=== PATIENT | female | born 1975 | race Hispanic/Latino ===

== ENCOUNTER 2019-01-27 02:34 | Inpatient (IN) | payer SELFPAY ==
[2019-01-27] MEDS ORDERED: Fentanyl 100 MCG/2 ML VIAL ONE ×4 (02:38→09:17)
[2019-01-27 02:46] LABS: Hemoglobin 13.8 g/dL (12.0-16.0); Mean Corpuscular HGB CONC 33.2 g/dL (32.0-36.0); Mean Corpuscular Hemoglobin 29.9 pg (27.0-31.0); Mean Platelet Volume 6.5 fL (7.4-10.4); Platelet Count 384 thou/uL (130-400); RBC Distribution Width 13.1 % (11.5-14.5); Red Blood Cell (RBC) Count 4.63 mill/uL (4.20-5.40); White Blood Cell (WBC) Count 10.5 thou/uL (4.8-10.8)
[2019-01-27 02:54] LABS: BHCG - Serum Negative (NEGATIVE); Pregs Control Background? CLEAR/WHITE (CLR/WHITE); Pregs Control Bar Appear? YES (CONTROL BAR)
[2019-01-27 03:02] LABS: ALT (SGPT) 55 U/L (8-55); AST (SGOT) 41 U/L (5-34); Albumin 4.7 g/dL (3.5-5.0); Alkaline Phosphatase 118 U/L (40-150); Anion Gap 19 mmol/L (10-20); BUN (Urea Nitrogen) 11 mg/dL (7.0-18.7); Bilirubin, Total 0.3 mg/dL (0.2-1.2); Calc. Creatinine Clearance 0 mL/min (70-130); Calcium 9.8 mg/dL (7.8-10.44); Carbon Dioxide 18 mmol/L (22-29); Chloride 109 mmol/L (98-107); Estimated GFR-MDRD 59; Globulin 3.5 g/dL (2.4-3.5); Glucose 133 mg/dL (70-105); Potassium 3.7 mmol/L (3.5-5.1); Protein, Total 8.2 g/dL (6.0-8.3); Sodium 142 mmol/L (136-145)
[2019-01-27 03:06] LABS: Lymphocytes 54 % (21-51); MDiff Complete? YES; Monocytes 10 % (0-10); Neutrophil 36 % (42-75); Platelet Morphology Comment Appears Adequate; RBC Morphology Normal
[2019-01-27] MEDS ORDERED: Ketorolac Tromethamine 30 MG/ML VIAL ONE ×2 (03:32→10:16)
[2019-01-27] MEDS ORDERED: Acetaminophen 1,000 MG in Premix Bag 1 BAG IVPB SCH ×3 (03:45→14:00)
[2019-01-27] MEDS ORDERED: traMADol HCl 50 MG TAB PO PRN ×2 (03:48)
[2019-01-27] MEDS ORDERED: Sodium Chloride 0.9% 1,000 ML IV SCH (04:00)
[2019-01-27] MEDS ORDERED: Pantoprazole 40 MG VIAL IVP SCH (04:00)
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
[2019-01-27] MEDS: Ketorolac Tromethamine 30 MG/ML VIAL IVP SCH ×2 (05:23→14:07)
[2019-01-27 05:51] VITALS: BMI 21.9
[2019-01-27] MEDS ORDERED: Morphine 4 MG/ML VIAL SLOW IVP SCH (06:00)
[2019-01-27] MEDS ORDERED: Morphine 4 MG/ML VIAL IV SCH (06:00)
[2019-01-27] MEDS ORDERED: Dextrose 5% in Water 1,000 ML IV PRN (06:44)
[2019-01-27] MEDS ORDERED: Dextrose 50% Abboject 50 ML SYRINGE SLOW IVP PRN (06:44)
[2019-01-27] MEDS ORDERED: Ondansetron PF 4 MG/2 ML Vial IVP PRN (06:44)
[2019-01-27] MEDS ORDERED: hydrALAZINE 20 MG/ML VIAL SLOW IVP PRN (06:44)
[2019-01-27] MEDS ORDERED: HumaLOG 300 UNITS/3 ML VIAL SC PRN (06:44)
[2019-01-27] MEDS ORDERED: Morphine 4 MG/ML VIAL SLOW IVP PRN (07:53)
[2019-01-27] MEDS ORDERED: Morphine 4 MG/ML VIAL ONE (07:56)
[2019-01-27] MEDS ORDERED: CEFAZOLIN 2 GM in Premix Bag 1 BAG IVPB SCH (08:00)
[2019-01-27] MEDS ORDERED: Midazolam HCl 2 mg/2 ml Vial ONE ×2 (08:16→09:17)
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
[2019-01-27] MEDS ORDERED: Famotidine/PF 20 mg/2ml Vial ONE (08:32)
[2019-01-27] MEDS ORDERED: Ondansetron PF 4 MG/2 ML Vial ONE ×2 (08:33→10:16)
[2019-01-27] MEDS ORDERED: Scopolamine 1.5 mg/72 hour Patch ONE (08:33)
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
[2019-01-27] MEDS: Polyethylene Glycol 3350 17 GM Packet PO SCH (08:59)
[2019-01-27] MEDS: Senokot S 8.6-50 MG TAB PO SCH ×2 (09:00→20:13)
[2019-01-27] MEDS ORDERED: Ondansetron HCl/PF 4 MG/2 ML Vial IVP PRN (09:03)
[2019-01-27] MEDS ORDERED: Promethazine HCl 25 MG/ML VIAL SLOW IVP PRN (09:03)
[2019-01-27] MEDS ORDERED: HYDROmorphone 2 MG/ML VIAL SLOW IVP PRN (09:03)
[2019-01-27] MEDS ORDERED: Meperidine HCl/PF 25 MG/ML VIAL SLOW IVP PRN (09:03)
[2019-01-27] MEDS ORDERED: Promethazine HCl 25 MG/ML VIAL IM PRN (09:03)
[2019-01-27] MEDS ORDERED: HYDROmorphone 2 MG/ML VIAL ONE ×2 (09:51→12:12)
[2019-01-27] MEDS ORDERED: PHENYLEPHRINE-NS 100 MCG/ML 10 ML SYRINGE ONE (10:16)
[2019-01-27] MEDS ORDERED: Glycopyrrolate 0.2 MG/ML 5 ML SYRINGE ONE (10:16)
[2019-01-27] MEDS ORDERED: Dexamethasone 20 MG/5 ML VIAL ONE (10:16)
[2019-01-27] MEDS ORDERED: PROPOFOL 200 MG/20 ML VIAL ONE (10:16)
[2019-01-27] MEDS ORDERED: Rocuronium Bromide 10 MG/ML (10ML VIAL) ONE (10:16)
[2019-01-27] MEDS ORDERED: ePHEDrine 50 MG/ML VIAL ONE (10:16)
[2019-01-27] MEDS ORDERED: Lidocaine 1% PF 5 ML VIAL ONE (10:16)
[2019-01-27] MEDS ORDERED: Iopamidol 370 76% 100 ML VIAL ONE (10:41)
--- NOTE | 2019-01-27 11:20 | RAD ---
EXAM: XR Tib Fib Lt Leg 2 View PROVIDED CLINICAL HISTORY: ORIF COMPARISON: 01/27/2019 FINDINGS: Spot fluoroscopic frontal and lateral views of the distal foreleg demonstrate partially visualized ch anges of antegrade intramedullary tibial nail placement with interlocking screws. Previously seen medial malleolar screws are no longer evident. Prior fibular postsurgical changes are partially visua lized. IMPRESSION: As above.
[2019-01-27] MEDS ORDERED: SUGAMMADEX SODIUM 500 MG/5 ML VIAL ONE (11:25)
[2019-01-27] MEDS: ALPRAZolam 1 MG TAB PO PRN ×2 (13:13→20:13)
[2019-01-27] MEDS ORDERED: Ketorolac Tromethamine 30 MG/ML VIAL IVP SCH ×2 (14:00→15:45)
[2019-01-27] MEDS: traMADol HCl 50 MG TAB PO SCH ×2 (14:10→20:13)
[2019-01-27] MEDS: traMADol HCl 50 MG TAB PO PRN (15:15)
[2019-01-27] MEDS ORDERED: HYDROcodone/Acetaminophen 7.5/325 mg Tablet PO PRN (15:36)
[2019-01-27] MEDS ORDERED: Ketorolac Tromethamine 30 MG/ML VIAL IVP PRN (15:36)
[2019-01-27] MEDS: HYDROcodone/Acetaminophen 7.5/325 mg Tablet PO PRN ×2 (16:33→22:49)
[2019-01-27] MEDS: Cyclobenzaprine 10 MG TAB PO PRN (16:33)
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
[2019-01-27] MEDS: CEFAZOLIN 2 GM in Premix Bag 1 BAG IVPB SCH (17:39)
[2019-01-27] MEDS ORDERED: Ibuprofen 600 MG TAB PO PRN (20:00)
[2019-01-28] MEDS: Ibuprofen 600 MG TAB PO SCH ×4 (00:15→18:28)
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
[2019-01-28] MEDS: traMADol HCl 50 MG TAB PO SCH ×4 (02:42→21:38)
[2019-01-28] MEDS: CEFAZOLIN 2 GM in Premix Bag 1 BAG IVPB SCH (02:43)
[2019-01-28] MEDS: Cyclobenzaprine 10 MG TAB PO PRN (02:43)
[2019-01-28] MEDS: Levothyroxine Sodium 88 MCG TAB PO SCH (05:36)
[2019-01-28 05:45] LABS: #Lymphocytes 1.4 thou/uL (1.20-3.40); #Monocytes 1.1 thou/uL (0.11-0.59); #Neutrophils 13.3 thou/uL (1.40-6.50); %Eosinophils 0.1 % (0.0-10.0); %Lymphocytes 8.7 % (21.0-51.0); %Neutrophils 84.2 % (42.0-75.0); Hemoglobin 11.5 g/dL (12.0-16.0); Mean Corpuscular HGB CONC 33.6 g/dL (32.0-36.0); Mean Corpuscular Hemoglobin 30.5 pg (27.0-31.0); Mean Corpuscular Volume 90.8 fL (78.0-98.0); Mean Platelet Volume 6.8 fL (7.4-10.4); Platelet Count 311 thou/uL (130-400); RBC Distribution Width 12.7 % (11.5-14.5); Red Blood Cell (RBC) Count 3.76 mill/uL (4.20-5.40); White Blood Cell (WBC) Count 15.8 thou/uL (4.8-10.8)
[2019-01-28 05:53] LABS: Anion Gap 16 mmol/L (10-20); BUN (Urea Nitrogen) 6 mg/dL (7.0-18.7); Calc. Creatinine Clearance 75 mL/min (70-130); Calcium 8.6 mg/dL (7.8-10.44); Carbon Dioxide 22 mmol/L (22-29); Chloride 104 mmol/L (98-107); Estimated GFR-MDRD 82; Glucose 131 mg/dL (70-105); Potassium 3.8 mmol/L (3.5-5.1); Sodium 138 mmol/L (136-145)
[2019-01-28] MEDS: Senokot S 8.6-50 MG TAB PO SCH ×2 (08:08→21:38)
[2019-01-28] MEDS: traMADol HCl 50 MG TAB PO PRN (08:09)
[2019-01-28] MEDS: Polyethylene Glycol 3350 17 GM Packet PO SCH (08:09)
[2019-01-28] MEDS: ALPRAZolam 1 MG TAB PO PRN (08:13)
[2019-01-28] MEDS: Aspirin 81 mg Enteric Coated Tablet PO SCH ×2 (10:14→21:38)
[2019-01-28] MEDS: HYDROcodone/Acetaminophen 7.5/325 mg Tablet PO PRN ×4 (10:14→23:28)
--- NOTE | 2019-01-28 10:49 | OP ---
DATE OF PROCEDURE: 01/27/2019 PREOPERATIVE DIAGNOSIS: Retained hardware blocking the intramedullary canal of the left tibia and left tibial shaft, left fibular fracture. PROCEDURE PERFORMED: Left ankle hardware removal, left tibial intramedullary fixation. HOROLOGIST: Bautista Jerome PA-C BLOOD LOSS: Minimal. TOURNIQUET TIME: 45 minutes. SPECIMEN: None. DRAINS: None. COMPLICATIONS: None. DESCRIPTION OF PROCEDURE: The patient was taken to the operating room, where general anesthesia was induced. Left leg was prepped and draped in usual sterile fashion. We examined the leg under C-arm fluoroscopy and as anticipated from preoperative films, the medial and lateral screws were blocking the intramedullary canal. I made an incision over the medial malleolus that was secured down to the medial malleolus and retracted the saphenous vein. The screws were located and removed. I irrigated and closed this incision with 2-0 Vicryl and radha. Attention was then turned back to the tibia. I made a patellar tendon splitting approach. I made an entry portal just anterior to the lateral tibial eminence and then reamed 11 mm proximally. I passed the ball-tipped guide jana with a good reduction and the reduction was not anatomic as there was a free-floating fragment posteriorly. However, rotationally it was appeared to be correct, reamed to 9.5, placed an 8 mm Synthes tibial nail with 4 mm locking screws proximally and distally. Irrigation was performed. Tourniquet was released and hemostasis was obtained. Patellar tendon was closed with #1 Vicryl, subcuticular with 2-0 Vicryl. All the puncture wounds for screws were closed with radha as well as the primary incision. Sterile dressing was applied. The patient was placed in a posterior splint. Job ID: [id number]
[2019-01-28] MEDS ORDERED: Acetaminophen 500 MG TAB PO SCH (12:00)
[2019-01-28] MEDS ORDERED: Acetaminophen 500 MG TAB PO PRN (12:00)
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
[2019-01-29] MEDS: Ibuprofen 600 MG TAB PO SCH ×4 (01:00→17:27)
[2019-01-29] MEDS: traMADol HCl 50 MG TAB PO SCH ×3 (01:01→14:48)
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
[2019-01-29] MEDS: HYDROcodone/Acetaminophen 7.5/325 mg Tablet PO PRN ×2 (06:01→11:49)
[2019-01-29] MEDS: Levothyroxine Sodium 88 MCG TAB PO SCH (06:01)
[2019-01-29] MEDS: Senokot S 8.6-50 MG TAB PO SCH (08:37)
[2019-01-29] MEDS: Aspirin 81 mg Enteric Coated Tablet PO SCH (08:37)
[2019-01-29] MEDS: Polyethylene Glycol 3350 17 GM Packet PO SCH (08:37)
[2019-01-29] MEDS: ALPRAZolam 1 MG TAB PO PRN (08:41)
[2019-01-29] MEDS ORDERED: HYDROcodone/Acetaminophen 10/325 mg Tablet PO SCH ×2 (13:30→17:00)
[2019-01-29 14:55] VITALS: BP 114/75; TEMP 97.9
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
== END 2019-01-29 18:02 | disposition home or self-care (01) | DRG 494 ==
LOC: ERS 02:34 → SURG A 03:03
PROVIDERS: ADMIT Surgery; ATTEND Surgery
PROC: 0SPG04Z Removal of Internal Fixation Device from Left Ankle Joint, Open Approach (ICD-10-PCS; principal; 2019-01-27)
PROC: 0QSH06Z Reposition Left Tibia with Intramedullary Internal Fixation Device, Open Approach (ICD-10-PCS; 2019-01-27)
DX: S82.292A Other fracture of shaft of left tibia, initial encounter for closed fracture (principal); S82.492A Other fracture of shaft of left fibula, initial encounter for closed fracture; E03.9 Hypothyroidism, unspecified; F32.9 Major depressive disorder, single episode, unspecified; F41.9 Anxiety disorder, unspecified; V29.9XXA Motorcycle rider (driver) (passenger) injured in unspecified traffic accident, initial encounter; Y93.89 Activity, other specified; Z87.891 Personal history of nicotine dependence; Z98.82 Breast implant status
CPT/HCPCS: 29515; 36415; 70450; 71045; 72125; 74177; 76000; 80048; 80053; 84703; 85025; 86850; 86900; 86901; 94760; 96365; 96375; 96376; C1713; C1769; C9113; J0131; J0690; J1100; J1170; J1885; J2001; J2250; J2270; J2405; J2704; J3010; J3490; Q9967; S0028